=== PATIENT | male | born 1955 | race Caucasian/White ===

== ENCOUNTER 2017-12-30 20:53 | Emergency (ER) | payer OTHER ==
[2017-12-31] MEDS: LORATADINE 10 MG TAB PO (00:26)
[2017-12-31] MEDS: predniSONE 20 MG TAB PO (00:26)
== END 2017-12-31 01:37 | disposition home or self-care (01) ==
LOC: FTE 20:53
DX: S60.561A Insect bite (nonvenomous) of right hand, initial encounter (principal); S60.562A Insect bite (nonvenomous) of left hand, initial encounter; I10 Essential (primary) hypertension; F17.210 Nicotine dependence, cigarettes, uncomplicated; W57.XXXA Bitten or stung by nonvenomous insect and other nonvenomous arthropods, initial encounter; Y92.9 Unspecified place or not applicable
CPT/HCPCS: 99283; J7512